=== PATIENT | male | born 1955 | race Caucasian/White ===

== ENCOUNTER → 2024-03-13 11:31 | Outpatient (REF) | payer MEDICARE, OTHER, SELFPAY ==
[2024-03-13 17:15] LABS: Blood Urea Nitrogen 27 mg/dl (9-20); Calcium 9.7 mg/dl (8.4-10.2); Carbon Dioxide 24 mmol/L (22-30); Chloride 105 mmol/L (98-107); Glucose 116 mg/dl (70-99); Potassium 4.4 mmol/L (3.5-5.1); Sodium 137 mmol/L (135-145); eGFR 46.64
[2024-03-13 17:31] LABS: Creatine Phosphokinase 3066 U/L (55-170)
== END ==
LOC: HWLAB 11:31
PROVIDERS: ATTENDING PHYSICIAN Family Medicine
DX: M79.10 Myalgia, unspecified site (principal)
CPT/HCPCS: 36415; 80048; 82550

== ENCOUNTER → 2024-03-20 11:40 | Outpatient (REF) | payer MEDICARE, OTHER, SELFPAY ==
[2024-03-20 15:33] LABS: Blood Urea Nitrogen 20 mg/dl (9-20); Calcium 9.4 mg/dl (8.4-10.2); Carbon Dioxide 26 mmol/L (22-30); Chloride 105 mmol/L (98-107); Creatine Phosphokinase 40 U/L (55-170); Glucose 95 mg/dl (70-99); Potassium 4.5 mmol/L (3.5-5.1); Sodium 135 mmol/L (135-145); eGFR > 60.00
== END ==
LOC: HWLAB 11:40
PROVIDERS: ATTENDING PHYSICIAN Family Medicine
DX: R74.8 Abnormal levels of other serum enzymes (principal)
CPT/HCPCS: 36415; 80048; 82550

== ENCOUNTER → 2024-06-26 06:45 | Outpatient (REF) | payer MEDICARE, OTHER, SELFPAY | LOC: MRI 3T 06:45 | PROVIDERS: ATTENDING PHYSICIAN Family Medicine | DX: F68.8 Other specified disorders of adult personality and behavior (principal); R26.81 Unsteadiness on feet; R40.4 Transient alteration of awareness; N52.9 Male erectile dysfunction, unspecified | CPT/HCPCS: 70551 ==

== ENCOUNTER → 2024-07-20 14:07 | Outpatient (REF) | payer MEDICARE, OTHER, SELFPAY | LOC: RAD 14:07 | PROVIDERS: ATTENDING PHYSICIAN Family Medicine | DX: R09.89 Other specified symptoms and signs involving the circulatory and respiratory systems (principal) | CPT/HCPCS: 93880 ==

== ENCOUNTER → 2024-08-10 07:32 | Outpatient (REF) | payer MEDICARE, OTHER, SELFPAY | LOC: RCS 07:32 | PROVIDERS: ATTENDING PHYSICIAN Internal Medicine Cardiovascular Disease; FAMILY PHYSICIAN Family Medicine | DX: I48.19 Other persistent atrial fibrillation (principal); I42.9 Cardiomyopathy, unspecified | CPT/HCPCS: 93306 ==

== ENCOUNTER → 2024-11-21 16:04 | Outpatient (REF) | payer MEDICARE, OTHER, SELFPAY | LOC: DHSLP 16:04 | PROVIDERS: ATTENDING PHYSICIAN Internal Medicine Cardiovascular Disease; FAMILY PHYSICIAN Family Medicine | DX: G47.33 Obstructive sleep apnea (adult) (pediatric) (principal) | CPT/HCPCS: 95800 ==

== ENCOUNTER → 2025-02-05 07:32 | Outpatient (REF) | payer MEDICARE, OTHER, SELFPAY ==
[2025-02-05 08:34] LABS: % Eosinophils 4.1 % (0-6); % Immature Granulocytes 0.3 % (0-0.5); % Lymphocytes 24.2 % (20.5-51.1); % Monocytes 6.9 % (1.7-9.3); % Neutrophils 63.5 % (42.2-75.2); Absolute Basophils 0.1 10^3/uL (0-0.2); Absolute Eosinophils 0.4 10^3/uL (0-0.7); Absolute Lymphocytes 2.3 10^3/uL (1.2-3.4); Absolute Monocytes 0.7 10^3/uL (0.1-0.6); Absolute Neutrophils 6.1 10^3/uL (1.4-6.5); Hematocrit 50.9 % (39.0-52.0); Hemoglobin 17.3 g/dL (13.0-18.0); Mean Corpuscular Hgb 30.2 pg (27.0-31.0); Mean Corpuscular Volume 88.8 fL (80.0-94.0); Mean Platelet Volume 10.2 fL (7.4-10.4); Nucleated Red Blood Cells % 0 % (-); Platelet Count 307 10^3/uL (130-400); Red Blood Cell Count 5.73 10^6/uL (4.70-6.10); Red Cell Dist. Width 13.1 % (11.5-14.5); White Blood Cell Count 9.6 10^3/uL (4.8-10.8)
[2025-02-05 08:39] LABS: INR 1.07; PT 14.3 Sec (11.4-14.6)
[2025-02-05 09:01] LABS: ALT (SGPT) 21 U/L (0-50); AST (SGOT) 21 U/L (17-59); Albumin 4.7 g/dl (3.5-5.0); Alkaline Phosphatase 95 U/L (38-126); Blood Urea Nitrogen 14 mg/dl (9-20); Calcium 9.7 mg/dl (8.4-10.2); Carbon Dioxide 26 mmol/L (22-30); Chloride 108 mmol/L (98-107); Glucose 116 mg/dl (70-99); Magnesium 2.2 mg/dl (1.6-2.3); Potassium 4.9 mmol/L (3.5-5.1); Sodium 143 mmol/L (135-145); Total Bilirubin 1.3 mg/dl (0.2-1.3); Total Protein 7.2 g/dl (6.3-8.2); eGFR > 60.00
== END ==
LOC: SDSPAT 07:32
PROVIDERS: ATTENDING PHYSICIAN Internal Medicine Cardiovascular Disease; FAMILY PHYSICIAN Family Medicine; REFERRING PHYSICIAN Internal Medicine Cardiovascular Disease
DX: I48.91 Unspecified atrial fibrillation (principal)
CPT/HCPCS: 36415; 75572; 80053; 83735; 85025; 85610; 86850; 86900; 86901; 93005; Q9967

== ENCOUNTER 2025-02-07 07:07 | Day surgery (SDC) | payer MEDICARE, OTHER, SELFPAY ==
[2025-02-05 08:04] VITALS: BMI 28.6
[2025-02-07] VITALS (13 sets, daily range): BP systolic 135–181; BP diastolic 83–115
--- NOTE | 2025-02-07 10:51 | ITS.CL.ABL ---
Convenience Store Manager - Ablation
Ablation
Procedure Report:
Primary Motor Vehicle Light Assembler: Dr Hubert Asher
Procedure Date: 02/07/2025
Patient History:
Patient pleasant 69-year-old male with a past medical history significant for hypertension, hyperlipidemia, nonischemic cardiomyopathy, symptomatic persistent atrial fibrillation.
See H&P for complete details.
Indication:
Symptomatic persistent atrial fibrillation
Nonischemic cardiomyopathy
Heart failure with mildly reduced ejection fraction
Arrhythmia Specific History:
Prior Medical Therapies for Rate and Rhythm Control:
X Beta-cleo
[ ] Calcium channel-cleo
[ ] Amiodarone
[ ] Dronederone
[ ] Sotalol
[ ] Flecainide
[ ] Dofetilide
[ ] Options limited by bradycardia
[ ] Options limited by comorbid renal disease
Prior Procedural Therapies for AF/AFL:
X Cardioversion
[ ] Pulmonary Vein Isolation
[ ] Posterior Wall Isolation
[ ] Additional lines (Specify)
[ ] Surgical Castro-MAZE or PVI (Specify)
Procedure Performed:
X AF ablation procedure (08677) -- includes LA/CS pacing, trans-septal, 3D mapping, + ICE
[ ] +IV drug (48766)
[ ] +Other Arrhythmia (55085)
X +Other AF Line/ablation (19679 x2) -- Posterior wall, floor line, roof line
Risks and expected recovery has been explained in detail. Alternative options have been explored, and in a shared-decision making fashion we have decided that this was the most appropriate procedure.
Method
NPO status confirmed. Grounding pad applied. Defibrillator pads applied. Continuous surface ECG, pulse oximetry, and blood pressure were monitored. Procedure was performed under general anesthesia, with anesthesia services.
Both groins were clipped, prepped with Chloraprep, and draped in sterile fashion. Time out was called. Local anesthesia administered with bupivacaine. The right femoral vein was accessed for catheter placement, using ultrasound guidance (images
saved to record), micro-puncture needle/wire, and modified seldinger technique. 3 sheaths were placed. The following catheters were used:
[ ] Tacticath SE (D/F Curve) ablation catheter
X Viewflex 9Fr ICE catheter
X Inquiry decapolar 6Fr diagnostic catheter
[ ] CRD Hex 6Fr
X FlexCath Contour 10 Fr with PulseSelect PFA Catheter
X Advisor HD Grid Mapping Catheter, SE
[ ] Acuson AcuNav 8 Fr ICE catheter
[ ]Other: [ ]
Intracardiac ultrasound (ICE) was carefully advanced into the right atrium to guide sheath placement over a J-wire, catheter placement, guide trans-septal puncture, identify potential complications, identify anatomic structures and ensure proper
contact between ablation catheter and tissue. A trace pericardial effusion was noted to be posterior/basal LV at the initiation of case. This remained unchanged during and at case completion.
Heparin was given prior to trans-septal puncture. Heparin was given to achieve and maintain a target ACT of 300-400 seconds throughout the procedure.
Trans-septal access was performed under ICE guidance. The trans-septal puncture was performed with a SafeSept wire through a Brockenbrough needle assembly through the steerable sheath. The wire was visualized as it entered the LSPV and system
advanced under ICE guidance and fluoroscopy into the LA. The Brockenbrough needle assembly, SafeSept wire and sheath dilator were removed under negative pressure. LA pressure was measured and recorded.
ICE and 3D mapping was performed to identify relevant cardiac structures. A careful 3D map was created to assess for regions of low-voltage and abnormal electrogram signals using HD grid mapping catheter and PulseSelect catheter. Additional mapping
was performed as outlined below.
Prior to ablation, glycopyrrolate was provided. PulseSelect catheter was advanced over J-wire to the ostium of each vein. Pulmonary vein isolation was performed with ostial and antral lesions in a circumferential manner. Contact was visualized via
EAM, ICE, fluoroscopy, and EGM signals.
After accomplishing pulmonary venous isolation, mapping identified additional areas likely to be extra PV contributors to atrial fibrillation. These areas demonstrated patchy low voltage as well as complex fractionated electrograms. These areas can
be sites for the formation of rotors which can drive and maintain atrial fibrillation. These areas are known to be significant contributors to initiation and perpetuation of atrial fibrillation.
Additional energy applications/additional ablation sets targeted extra PV contributors to atrial fibrillation.
Targets for additional PFA ablation included: LA posterior wall targeted with pulsed electric field energy isolating the posterior wall of the left atrium. Posterior wall isolation was performed by anchoring the J-wire within the pulmonary vein and
placing the PulseSelect catheter in contact posterior wall as visualized by aforementioned methods.
After ablation of the posterior wall, targets remained including:
- Inferior LA floor
- Anterior LA roof
These areas were ablated using pulsed electric field energy eliminating the extra PV contributors to atrial fibrillation.
Following completion of ablation lesions, sinus rhythm was restored with a 200J synchronized DCCV and a post-ablation voltage/activation map was performed in sinus rhythm. Reconnection was noted by high-density mapping with HD grid mapping catheter
at the left superior and right superior pulmonary veins. Pulse select catheter was reintroduced in the left atrium and ablation was performed at the left superior and right superior pulmonary veins. During ablation of the left superior pulmonary
vein, spontaneous AF was noted with return to sinus rhythm with cardioversion entheses 200 J synchronized DCCV). HD mapping catheter was reintroduced in the left atrium and entrance and exit block were confirmed for each vein and the posterior wall.
Catheter and sheath were removed from the left atrium and post-ablation intracardiac echo evaluation was consistent with pre-ablation with no changes and no pericardial effusion and there is no left atrial thrombus or left ventricle thrombus seen.
Electrophysiology study was performed. Hemostasis was obtained with Vascade for each sheath and with manual pressure. Protamine was used for reversal.
Estimated Blood Loss
5 mL
Complications
None
Fluoroscopy: 2.6 minutes; 7.95 mGy; DAP 0.99
LA Pressure: Pre 18 mmHg, post 11 mmHg
Baseline Intervals:
Rhythm: AF
QRS: 79 ms
QT: 256 ms
Post-Procedure Intervals:
SD: 194 ms
QRS: 66 ms
QT: 415 ms
QTc: 442 ms
A-A: 883 ms
R-R: 883 ms
AVWB: 340 ms
AVNERP: 600/290 ms
AERP: 600/220 ms
Recommendations
- Bedrest with straight-leg precautions as ordered
- Anticipate same day discharge if patient meeting clinical metrics
- Resume home medications as indicated
- Ok to resume anticoagulation tonight if patient and groin sites stable
- PPI daily for 30 days
- Plan for follow-up in office as scheduled
Maycol Infante, , FACC, FHRS
Clinical Cardiac Card Boxer
cc: Dr Cris Asher; Dr Arndt
[2025-02-07 12:21] LABS: ACT-LR - POC 268 Seconds (116-155)
[2025-02-07 12:36] LABS: ACT-LR - POC 384 Seconds (116-155)
[2025-02-07 12:52] LABS: ACT-LR - POC 290 Seconds (116-155)
[2025-02-07 13:10] LABS: ACT-LR - POC 393 Seconds (116-155)
[2025-02-07 13:26] LABS: ACT-LR - POC 326 Seconds (116-155)
[2025-02-07 13:42] LABS: ACT-LR - POC 337 Seconds (116-155)
[2025-02-07 13:57] LABS: ACT-LR - POC 145 Seconds (116-155)
--- NOTE | 2025-02-07 16:43 | W.PN.UPDATE ---
Update Note
Progress Note Update
69 yo WM s/p PVI (same day). He denies cp, sob, laura diet, R fem site vascade c/d/i no HT, soft. He will resume Eliquis tonight after 8pm. He will continue metoprolol and add PPI for 30d. Activity restrictions reviewed. He will f/u Dr. Harden in 3
mo. He is for d/c home after 5pm if groin stable.
== END 2025-02-07 17:15 | disposition home or self-care (01) ==
LOC: CATH 07:07
PROVIDERS: ATTENDING PHYSICIAN Internal Medicine Cardiovascular Disease; FAMILY PHYSICIAN Family Medicine; OTHER PHYSICIAN Internal Medicine Cardiovascular Disease
DX: I48.19 Other persistent atrial fibrillation (principal); I42.8 Other cardiomyopathies; E78.5 Hyperlipidemia, unspecified; I11.0 Hypertensive heart disease with heart failure; G47.33 Obstructive sleep apnea (adult) (pediatric); I08.1 Rheumatic disorders of both mitral and tricuspid valves; Z85.47 Personal history of malignant neoplasm of testis; Z87.891 Personal history of nicotine dependence; Z86.19 Personal history of other infectious and parasitic diseases; Z79.899 Other long term (current) drug therapy; Z92.21 Personal history of antineoplastic chemotherapy; I50.32 Chronic diastolic (congestive) heart failure
CPT/HCPCS: 93312; 93320; 93325; C1732; C1894; C1730; C1769; C1733; C1766; 85347; 86900; 86901; 93005; 93656; 93657; C1760

== ENCOUNTER 2025-02-09 06:47 | Inpatient (IN) | payer MEDICARE, OTHER, SELFPAY ==
[2025-02-09] VITALS (67 sets, daily range): BP systolic 100–241; BP diastolic 48–135; PULSE 2–96; BMI 28.5; BMI 28.3
[2025-02-09 02:32] LABS: Hematocrit 47.7 % (39.0-52.0); Hemoglobin 16.1 g/dL (13.0-18.0); Mean Corp Hgb Conc. 33.8 g/dL (33.0-37.0); Mean Corpuscular Volume 90.3 fL (80.0-94.0); Nucleated Red Blood Cells % 0 % (-); Platelet Count 309 10^3/uL (130-400); Red Cell Dist. Width 13.6 % (11.5-14.5)
[2025-02-09 02:35] LABS: INR 1.08; PT 14.5 Sec (11.4-14.6)
[2025-02-09 02:36] LABS: APTT 27.0 Sec (23.4-35.0)
[2025-02-09] MEDS: NITRO-BID 1 INCH TOPICAL (02:38)
[2025-02-09 02:39] LABS: ALT (SGPT) 26 U/L (0-50); AST (SGOT) 54 U/L (17-59); Albumin 4.7 g/dl (3.5-5.0); Alkaline Phosphatase 96 U/L (38-126); Blood Urea Nitrogen 21 mg/dl (9-20); Calcium 9.5 mg/dl (8.4-10.2); Carbon Dioxide 24 mmol/L (22-30); Chloride 111 mmol/L (98-107); Estimated Creatinine Clearance 67 ml/min; Glucose 123 mg/dl (70-99); Potassium 4.5 mmol/L (3.5-5.1); Sodium 143 mmol/L (135-145); Total Protein 7.1 g/dl (6.3-8.2); eGFR > 60.00
[2025-02-09 03:21] LABS: Troponin I 6.140 ng/ml
--- NOTE | 2025-02-09 04:30 | ED.GENMED ---
History of Present Illness
General
Chief Complaint: Breathing Problem
Source: patient
Time Seen by Provider: 02/09/25 02:16
Nursing documentation reviewed up to this point in time: agreed with
History of Present Illness
History of Present Illness:
Note:
CHIEF COMPLAINT(S)
Shortness of breath
HISTORY OF PRESENT ILLNESS
The patient is a 69-year-old male who experienced sudden onset shortness of breath approximately half an hour prior to arrival. The symptoms began post-ablation, which the patient underwent yesterday around 2 oclock. The patients spouse noted the
difficulty in breathing while they were lying in bed together around midnight. The patient denied any chest pain but reported that the shortness of breath was new and abrupt. The patient confirmed not experiencing these symptoms immediately after
the procedure during the day.
PHYSICAL EXAM
Nursing notes reviewed and vital signs reviewed.
The physical exam included listening for lung sounds, which showed no immediate issues, confirming good lung markings.
PLAN
A chest X-ray was planned to further evaluate the cause of the shortness of breath. It was discussed that if necessary, intubation might be needed, and the patient consented to the procedure if required.
DIFFERENTIAL DIAGNOSIS
The Differential Diagnosis includes, in no particular order and is not limited to:
1. Post-procedural pulmonary edema
2. Pulmonary embolism
3. Acute coronary syndrome
4. Allergic reaction to medication or anesthesia
5. Pneumothorax
6. Cardiac tamponade
7. Heart failure exacerbation
8. Atelectasis
9. Infection, such as pneumonia
10. Anesthesia-related complications
Disposition:
SUMMARY OF ENCOUNTER
The 69-year-old male patient presented to the emergency department with sudden onset of shortness of breath, experienced approximately half an hour prior to arrival. This occurred following an ablation procedure the day before. Upon evaluation, the
patient denied chest pain and lung sounds were normal. However, the possibility of post-procedural pulmonary edema was considered.
DISPOSITION
Admit
ASSESSMENT
The patient likely experienced flash pulmonary edema following the procedure, necessitating hospitalization for further evaluation and monitoring.
MANAGEMENT OF THE PATIENTS CARE WAS DISCUSSED WITH
Spoke with Dr. Reeves from cardiology who recommended hospital admission for monitoring troponin levels and further cardiac assessment.
PLAN
Admit the patient for continued testing, observation, and trending of troponin levels due to suspected post-procedural complications.
INDEPENDENT REVIEW OF LABS AND INTERPRETATION OF TESTS
Labs were reviewed with cardiology, appearing to be expected or improved.
MEDICAL DECISION MAKING
-Complexity of Data Reviewed: Chronic conditions affecting care, including potential post-procedural complications such as flash pulmonary edema [possible differential diagnosis: post-procedural pulmonary edema, pulmonary embolism, acute coronary
syndrome, allergic reaction, pneumothorax, cardiac tamponade, heart failure exacerbation, atelectasis, infection like pneumonia, anesthesia-related complications].
-Data:
Category 1: Labs were ordered to monitor cardiac markers, including troponin.
Category 3: Discussion of management was conducted with Dr. Reeves from cardiology to determine the necessity of admission and ongoing assessment.
DIAGNOSIS
- Flash Pulmonary Edema post-procedure (ICD-10: J81.0)
Past History
Past History
ED Past Medical History: Other (testicular cancer )
ED Past Surgical History: Other (retroperitoneal lymph )
Social History
Tobacco: Non-smoker
Personal:
Phy Exam
General Physical Exam
General Presentation: moderate distress
General age: appears older than age
General Skin: diaphoretic
General Habitus: normal
General Mental: alert
General Hydration: appears well hydrated
ENT Exam
ENT Exam: EOMI, pharynx normal, neck supple and normocephalic
Eye Exam
Eye Exam: PERRL, cornea clear and conjunctiva normal
Cardiovascular Exam
Cardiovascular Exam: tachycardia
Pulmonary Exam
Pulmonary Exam: accessory muscle use, generalized wheezing and respiratory distress
Respiratory Effort: poor respiratory effort
Oxygen Status: BiPAP
Cough: coarse cough
Respirations: accessory muscle use and moderate effort
Breath Sounds: Wheeze: generalized
Gastrointestinal Exam
Gastrointestinal Exam: normal bowel sounds, non tender, soft, no organomegaly, no pulsatile mass and non distended
Neurological Exam
Neurological Exam: alert, oriented x3, no motor deficits and speech normal
Musculoskeletal Exam
Musculoskeletal Exam: full ROM and no edema
Skin Exam
Skin Exam: normal color and diaphoresis
Psychiatric Exam
Psychiatric Exam: normal mood/affect
Scores
Heart Failure Risk
Heart Failure Risk Score: Yes
History of Stroke or TIA: No
History of intubation for respiratory distress: No
Heart rate on ED arrival >/= 110: Yes
SaO2 <90% on arrival on room air: Yes
HR >/=110 during 3min walk test (or too ill to perform test): Yes
ECG has acute ischemic changes: No
Urea >/=12mmol/L (BUN 33.6mg/dL): No
Serum CO2>/=35mmol/L: No
Troponin I or T elevated to ID Level (0.4mg/dL): Yes
NT-proBNP >/=5,000ng/L (5,000pg/ml): No
HF Risk Score: 5
Admission Status: VERY HIGH RISK 39.8% Consider admission to hospital
Course
Orders/Labs/Results
Orders:
Orders
02/09/25 02:10
CR Chest Portable - 1 View Stat
Comment:
Reason For Exam: SOB
Reason Study Needs to be Portable: Unable to Transport
02/09/25 02:11
Electrocardiogram (*1) Urgent
Reason for Study: Shortness of Breath
EKG- Treatment ONCE
02/09/25 02:15
Add On- LAB Urgent
Tests Added?: pro-bnp
CT Chest PE Study Urgent
Comment:
Reason For Exam: Sudden onset SOB shortly after ablation
Complete Blood Count/With Diff Urgent
Comprehensive Metabolic Panel Urgent
NT-proBNP Urgent
Comment: ADD ON
PTT Urgent
Prothrombin Time Urgent
Troponin I Urgent
02/09/25 02:36
Nitroglycerin Ointment [Nitro-Bid] 1 inch TOPICAL NOW STA
Abnormal Lab Results
02/09/25
02:15
WBC 21.4 H 10^3/uL
(4.8-10.8)
Abs Immat Gran (auto) 0.1 H 10^3/uL
(0-0.05)
Absolute Neuts (auto) 17.4 H 10^3/uL
(1.4-6.5)
Absolute Monos (auto) 1.0 H 10^3/uL
(0.1-0.6)
Immature Gran % 0.6 H %
(0-0.5)
Neutrophils % 81.5 H %
(42.2-75.2)
Lymphocytes % 11.8 L %
(20.5-51.1)
Chloride 111 H mmol/L
(98-107)
BUN 21 H mg/dl
(9-20)
Glucose 123 H mg/dl
(70-99)
Troponin I 6.140 H* ng/ml
02/09/25 02:15
02/09/25 02:15
Vital Signs
Initial and Last Documented VS:
Initial Vital Signs
Resp
47
02/09/25 02:08
Last Documented Vital Signs
Pulse Resp BP Pulse Ox
89 30 139/93 96
02/09/25 04:00 02/09/25 04:00 02/09/25 04:00 02/09/25 04:30
*Radiology
Radiology exam reviewed: radiology read reviewed
*Pulse Oximetry
SaO2: 96
Oxygen Mode of Delivery: BiPAP
Patient hypoxic: yes (Upon arrival patient was hypoxic)
*Plating Department Helper Interpretation
Rate: tachycardiac
Heart Rate: 103
Rhythm: sinus
*Critical Care Note
Total Time (30-74mins, 75-104mins- exclusive of procedures): 50 (Critical care statement: A total of 50 minutes of critical care time was provided for this patient. This time is separate from time utilized to perform the aforementioned documented
procedures. Aggregate critical care time includes only time during which I was engaged in work directl)
Update Note
Update Note:
NAME: ERIK BOO
DATE OF EXAM: 02/09/2025
Patient No: [id number]
Physician: MARCUS^Jeison
Date of : 1955
Past Medical History (entered by Technologist):
Reason For Exam (entered by Technologist): sob s/p ablation yesterday
Other Notes (entered by Technologist):
Additional Information (per [facility] Radiologist):
CT ANGIOGRAM CHEST WITH CONTRAST
COMPARISON: 02/05/2025
IMPRESSION:
Technically adequate examination for pulmonary embolus. No evidence of pulmonary embolus to the segmental level.
Heart size is normal. Thoracic aorta is normal in caliber.
Moderate pulmonary edema asymmetrically involving the right upper, middle, lower lobes. Small right pleural effusion. Mild thickening of the right inferior pulmonary vein. No definite intracardiac thrombus. No specific features of
atrioesophageal fistula.
Left thyroid nodule measuring 3.5 cm.
Visualized upper abdomen is unremarkable.
No concerning bone finding. Unchanged moderate T12 compression deformity.
Case results were faxed/electronically transmitted at 2904 EST. If there are any questions please feel free to contact me directly at [phone], ext [phone]. If you cannot reach me at this number, do not leave a voicemail. Please call [phone]
ext [phone] and ask for the next available radiologist.
ED Attending Note
-
Portions of this chart may have been created with voice recognition software.� Occasional wrong word or��sound alike� substitutions may have occurred due to the inherent limitations of voice recognition software.
Discharge Plan
Departure
Patient Disposition: Admit
Date of Disposition: 02/09/25
Time of Disposition: 05:01
Presentation/result/management discussed w/ accepting MD/DO: Hospitalist
Patient with high blood pressure during this ER visit?: Yes
Condition: Fair
Discharge Problem:
Flash pulmonary edema, Acute respiratory distress
Prescriptions:
No Action
Eliquis 5 mg Tablet
5 mg PO BID
atorvastatin 10 mg Tablet
10 mg PO QPM
metoprolol tartrate 50 mg Tablet
50 mg PO BID
pantoprazole [Protonix] 40 mg tablet,delayed release (DR/EC)
40 mg PO DAILY Qty: 30 0RF
Referrals:
Asa Arndt MD [Family Provider, Family Practice]
Interventions
Interventions:
*Risk Screen - Suicide Last Done: 02/09/25 02:21
*General Assessment Last Done: 02/09/25 02:12
*Neglect/Abuse Screening Last Done: 02/09/25 02:21
*ED- Fall Risk Assessment Last Done: 02/09/25 02:12
*ED COVID-19 Vaccine History Last Done: 02/09/25 02:12
ED- Cardiac Assessment Last Done: 02/09/25 02:21
ED- Pulmonary Assessment Last Done: 02/09/25 02:21
Discharge Date and Time
Print Language: IRISH
--- NOTE | 2025-02-09 06:36 | HPS.HSE ---
Family Physician
-
Family Physician: Asa Arndt MD
Chief Complaint
-
SOB
History of Present Illness
Patient is a 69y M with PMH significant for hypertension, cardiomyopathy with recovered EF and A-Fib s/p recent PVI ablation who presents to ED in respiratory distress. Patient underwent PVI ablation on 02/07/25. He was feeling well following
that procedure. This evening when going to bed (around midnight), he started to feel SOB. A short time later, his noted that he was breathing very shallow / strangely. He informed her that he was having difficulty breathing and EMS as called.
Patient denies any chest pain, palpitations, diaphoresis, nausea, etc.
He denies any recent cough, fevers / chills, etc.
Patient was placed on BiPAP in the ED along with Nitropaste and is currently resting comfortably. He feels much improved from initial arrival.
Medical History
Past Medical History
Past Medical History: Reports Other
Additional Past Medical History:
Persistent Atrial Fibrillation
Hypertension
Cardiomyopathy with Recovered EF
MEDARDO (not on PAP therapy)
Testicular Cancer s/p Surgery / Chemo
Past Surgical History: Reports Other
Additional Past Surgical History:
PVI Ablation 02/07/25
Orchiectomy
Social History
Tobacco: Former Smoker (Quit smoking 50 years ago.)
Alcohol: Daily (1 drink daily.)
Family History
Family History: Not pertinent
Allergies / Home Medications
Allergies reflects when Allergies were last updated in [facility].
Home Medications with original date entered in [facility]
Allergy/Medication List:
Allergies
Allergy/AdvReac Type Severity Reaction Status Date / Time
blood transfusions Allergy Severe Anaphylaxis Uncoded 02/09/25 02:12
Home Medications
apixaban 5 mg tablet (Eliquis) 5 mg PO BID 02/05/23
atorvastatin 10 mg tablet 10 mg PO QPM 02/02/25
metoprolol tartrate 50 mg tablet 50 mg PO BID 02/07/25
pantoprazole 40 mg tablet,delayed release (Protonix) 40 mg PO DAILY #30 tabs 02/07/25
Review of Systems
-
History Source: Patient
A 12 point ROS was completed and negative except as noted: Yes
Constitutional: Reports Fatigue; Denies Fever or Chills
EENT: Denies Sore Throat
Respiratory: Reports Trouble Breathing; Denies Cough
Cardiac: Denies Chest Pain, Diaphoresis or Palpitations
Abdomen/GI: Denies Abdominal Pain, Nausea, Vomiting or Diarrhea
: Denies Dysuria or Frequency
Musculoskeletal: Denies Joint Pain or Edema
Neurological: Denies Dizzy or Headache
Psych: Denies Depression or Anxiety
Physical Exam
Vital Signs
Vital Signs
Pulse Resp BP Pulse Ox
84 23 124/81 97
02/09/25 06:00 02/09/25 06:00 02/09/25 06:00 02/09/25 06:00
Physical Exam
General: Other (69y M comfortable with BiPAP in place.)
HEENT: Moist mucous membranes, PERRLA and Other (Pos JVD.)
Respiratory: Other (Bibasilar rales.)
Cardiac: S1/S2 and Regular Rhythm; No Murmur
GI: Soft, Non Tender, Non Distended and Normal Bowel Sounds
Musculoskeletal: No Clubbing, No Cyanosis and No Edema
Neuro: AO x 3
Hematologic/Lymphatic: Other (R groin puncture site with dressing in place. No bleeding or surrounding ecchymosis, etc.)
Laboratory Results
-
02/09/25 02:15
02/09/25 02:15
Laboratory Results
PT 14.5 Sec (11.4-14.6) 02/09/25 02:15
INR 1.08 02/09/25 02:15
APTT 27.0 Sec (23.4-35.0) 02/09/25 02:15
Total Bilirubin 0.7 mg/dl (0.2-1.3) 02/09/25 02:15
AST 54 U/L (17-59) 02/09/25 02:15
ALT 26 U/L (0-50) 02/09/25 02:15
Alkaline Phosphatase 96 U/L (38-126) 02/09/25 02:15
Troponin I 6.140 ng/ml H* 02/09/25 02:15
Impression/Plan
-
A/P: Patient is a 69y M with PMH significant for hypertension, cardiomyopathy and A-Fib s/p recent ablation who presents to ED complaining of SOB.
Flash Pulmonary Edema
Acute Hypoxemic Respiratory Failure secondary to the above
- Admit for further evaluation and treatment.
- Patient presented in respiratory distress with markedly elevated BP, bilateral rales, pulm edema on imaging, etc.
- BP / dyspnea markedly improved with administration of NitroPaste.
- Continue NTP q 6 for now with holding parameters.
- Continue BiPAP and wean as able (much more comfortable at present).
- IV Lasix dose this AM.
- Adjust antihypertensive med regimen as needed for normotension.
- Cardiology evaluation for additional recommendations.
Persistent Atrial Fibrillation
- s/p PVI ablation on 02/07/25.
- Continue Eliquis for stroke risk reduction.
- Monitor on tele.
- Continue metoprolol.
- Femoral puncture site care.
DVT Prophylaxis: On Eliquis
Code Status: Full
--- NOTE | 2025-02-09 07:16 | CON.CAR ---
Consultation
Consultation Request
Date/Time Consultation Requested: 02/09/2025, 0230
Date/Time Consultation Performed: 02/09/2025, 0700
Requesting Provider: Dr Salguero
Performing Provider: Dr Infante
Reason for Consultation: SOB
Medical History
-
Chief Complaint: SOB
History of Present Illness:
Patient is a very pleasant 69-year-old male with a past medical history significant for hypertension, hyperlipidemia, nonischemic cardiomyopathy with recovered EF, symptomatic persistent atrial fibrillation with recent ablation on 02/07/2025 with PFA
PVI/PWI. In discussion with patient, reports overall feeling well following discharge however on 02/08/2025, he began to experience increasing/worsening shortness of breath at rest and with activity and exertion which was new for him. Patient was
increasing his use of BiPAP at home to the point where he needed to come into the hospital due to worsening shortness of breath. Patient denies any chest pain, lightheadedness, dizziness, near-syncope, syncope, PND, with apnea, palpitations, or
weakness. Patient reports stable groin sites without complaints. Patient reports adherence to Eliquis however has not taken his dose today. No other complaints at this time.
Past Medical History
Past Medical History: Other (See HPI)
Past Surgical History: Other (Orchiectomy, AF ablation)
Social History
Tobacco: Former Smoker
Alcohol: Daily
Drug: None
Personal:
Living: With Family
Family History
Family History: Reviewed & Not Pertinent
Allergies / Home Medications
Allergy/AdvReac Type Severity Reaction Status Date / Time
blood transfusions Allergy Severe Anaphylaxis Uncoded 02/09/25 02:12
�Medication �Instructions �Recorded �Confirmed �Type
apixaban 5 mg tablet (Eliquis) 5 mg PO BID 02/05/23 02/09/25 History
atorvastatin 10 mg tablet 10 mg PO QPM 02/02/25 02/09/25 History
metoprolol tartrate 50 mg tablet 50 mg PO BID 02/07/25 02/09/25 History
pantoprazole 40 mg tablet,delayed 40 mg PO DAILY #30 tabs 02/07/25 02/09/25 Rx
release (Protonix)
Review of Systems
-
History Source: Patient
All other systems: Negative unless noted
Constitutional: No Symptoms
EENT: No Symptoms
Respiratory: Trouble Breathing
Cardiac: No Symptoms
Abdomen/GI: No Symptoms
: No Symptoms
Musculoskeletal: No Symptoms
Skin: No Symptoms
Neurological: No Symptoms
Endocrine: No Symptoms
Hematologic/Lymphatic: No Symptoms
Physical Exam
Vital Signs
Pulse Resp BP Pulse Ox
84 23 124/81 97
02/09/25 06:00 02/09/25 06:00 02/09/25 06:00 02/09/25 06:00
Lab Results
02/09/25 02:15
02/09/25 02:15
Troponin I 6.140 ng/ml H* 02/09/25 02:15
Ihm-B-Tjjqzdzwtvu Pept 643 pg/ml 02/09/25 02:15
Physical exam:
GENERAL: no acute distress
EYE: sclera anicteric
NECK: Supple, no JVD, no carotid bruit appreciated
ENT: normal nose, moist mucosal membranes
CARDIAC: Regular rate and rhythm, +S1/S2, no murmur, rubs, or gallops
CHEST/PULMONARY: Normal effort, bibasilar crackles, on BiPAP
ABDOMEN: Soft, without focal tenderness or distention
NEUROLOGICAL: Alert and oriented x3
SKIN: Warm and dry, no rash
PSYCH: Normal and appropriate interaction.
Impression / Plan
-
Family Physician: Asa Arndt MD
[employer]: Hubert Asher MD
Impression:
Acute hypoxic respiratory failure
� Likely multifactorial in the setting of flash pulmonary edema and elevated white count
� Leukocytosis may be reactive however cannot exclude infection
� Admission BNP greater than 600, systolics greater than 200, EKG sinus rhythm
� Chest imaging no evidence of PE however evidence of volume overload by imaging
� Requiring BiPAP, nitroglycerin paste
� IV Lasix given on 02/2025
Flash pulmonary edema contributing to above
Hypertension, poorly controlled
Nonischemic cardiomyopathy, recovered EF
� On beta-cleo
� Not previously on ARB or other medical therapy due to hypotension
Symptomatic persistent atrial fibrillation, currently in sinus rhythm
� Status post AF ablation (PFA PVI/PWI on 02/07/2025)
� [id number]: 3 (heart failure, hypertension, age). Eliquis 5 mg twice daily for stroke risk reduction
Echo, 01/28/2023:Mildly reduced LV function with EF 45-50%, mild MR
Echo, 08/10/2024: Normal LV RV function, EF 55-60%, mild MR, mild TR PASP 27 mmHg
DEO, 02/07/2025: Normal LV RV function EF 55 to 60%, trace MR, mild TR, focal pulmonic valve thickening, no left atrial appendage thrombus
Recommendations:
� IV Lasix, monitor intake and output, daily weights
� Monitor on telemetry, continue oral anticoagulation with recent PVI
� Continue metoprolol, may require additional agents like ARB/MELVIN in setting of prior nonischemic cardiomyopathy and hypertension
� Wean BiPAP as tolerated
� Appreciate input by primary service further etiologies for shortness of breath and leukocytosis
� Further recommendations to follow
Data Reviewed
-
EKG: Tracing Personally Visualized and interpreted
Radiology: Report Reviewed by me
CT Scan: Report Reviewed by me
Labs: Labs Reviewed by me
Old Records: Reviewed
[2025-02-09] MEDS: LOPRESSOR 50 MG PO ×2 (10:26→20:17)
[2025-02-09] MEDS: ELIQUIS 5 MG PO ×2 (10:27→20:17)
[2025-02-09] MEDS: LASIX 40 MG IV (10:27)
--- NOTE | 2025-02-09 11:00 | PTCARENOTE ---
Pt rec'd from ED RN at approx 10:00 am on 5L nasal cannula, sa02 97%, AOx3 flat affect, stood and pivoted to bed. Pt verbalized no pain at this time. Orders rec'd and reviewed, admission and assessment completed, plan discussed with Dr. Diehl and
patient updated. Pt verbalized understanding, call fang in reach. Utilizing urinal PRN -voiding clear yellow urine. Diet ordered, 02 weaned to 4L.
[2025-02-09] MEDS: PROTONIX 40 MG PO (11:06)
--- NOTE | 2025-02-09 12:01 | W.PN.UPDATE ---
Update Note
Progress Note Update
Seen and examined independent of overnight physician
Patient was evaluated in the ER on BiPAP. States breathing improved. BiPAP
Eventually patient transferred to IMU and off BiPAP on nasal cannula. Seems to be tolerating well.
General: Other (69y M comfortable with BiPAP in place.)
HEENT: Moist mucous membranes, PERRLA and Other (Pos JVD.)
Respiratory: Other (Bibasilar rales.)
Cardiac: S1/S2 and Regular Rhythm; No Murmur
GI: Soft, Non Tender, Non Distended and Normal Bowel Sounds
Musculoskeletal: No Clubbing, No Cyanosis and No Edema
Neuro: AO x 3
A/P: Patient is a 69y M with PMH significant for hypertension, cardiomyopathy and A-Fib s/p recent ablation who presents to ED complaining of SOB.
Flash Pulmonary Edema
Acute Hypoxemic Respiratory Failure secondary to the above
- Patient presented in respiratory distress with markedly elevated BP, bilateral rales, pulm edema on imaging, etc.
- BP / dyspnea markedly improved with administration of NitroPaste.
- Continue NTP q 6 for now with holding parameters.
- Currently on oxygenation with nasal cannula. Can restart BiPAP if needed.
- IV Lasix dose this AM.
- Adjust antihypertensive med regimen as needed for normotension.
-CT chest negative for pulmonary embolism. There is a finding of moderate pulmonary edema. Blood pressure improving.
- Cardiology evaluation for additional recommendations.
Persistent Atrial Fibrillation
- s/p PVI ablation on 02/07/25.
- Continue Eliquis for stroke risk reduction.
- Monitor on tele.
- Continue metoprolol.
- Femoral puncture site care.
Elevated troponin likely secondary to recent ablation, flash pulmonary edema, hypoxic respiratory failure
- Currently without chest pain. Monitor troponin. Cardiology following.
Leukocytosis unclear etiology
-If spikes fever check UA blood culture
-Continue to trend for now
Thyroid nodule
-Outpatient follow-up
DVT Prophylaxis: On Eliquis
Code Status: Full
[2025-02-09] MEDS: NITRO-BID 0.5 INCH TOPICAL ×2 (12:26→18:18)
[2025-02-09 13:58] LABS: Troponin I 3.880 ng/ml
[2025-02-09] MEDS: TRANDATE 10 MG IV (15:11)
--- NOTE | 2025-02-09 15:30 | PTCARENOTE ---
BPs continue trending high, updated. Stat dose 10 mg Labetalol ordered and given. Pts informed this RN that pt's groin dressing was due to be removed today as per his dc instuctions from previous ablation. Dressing removed. Scant old
drainage noted, area wiped with CHG cloths and left PRODUCT LEAD. Pt resting quietly in bed, watching TV, at bedside.
[2025-02-09] MEDS: LIPITOR 10 MG PO (18:18)
--- NOTE | 2025-02-09 18:38 | PTCARENOTE ---
Pt was assisted oob to chair for dinner, sat out for approx 2 hours, standby assistance, gait steady, slightly impulsive. Pt now back in bed, resting watching tv. BP improved s/p medication administration as prior, currently 134/79. left for
night, call fang in reach.
[2025-02-10] VITALS (25 sets, daily range): BP systolic 97–178; BP diastolic 66–112; PULSE 86; O2SAT 93; BMI 27.5
[2025-02-10] MEDS: NITRO-BID 0.5 INCH TOPICAL ×2 (00:50→05:54)
[2025-02-10 04:17] LABS: Hematocrit 40.3 % (39.0-52.0); Hemoglobin 13.8 g/dL (13.0-18.0); Mean Corp Hgb Conc. 34.2 g/dL (33.0-37.0); Mean Corpuscular Volume 89.2 fL (80.0-94.0); Platelet Count 218 10^3/uL (130-400); Red Cell Dist. Width 13.6 % (11.5-14.5)
[2025-02-10 04:26] LABS: Blood Urea Nitrogen 19 mg/dl (9-20); Calcium 9.0 mg/dl (8.4-10.2); Carbon Dioxide 27 mmol/L (22-30); Chloride 108 mmol/L (98-107); Estimated Creatinine Clearance 84 ml/min; Glucose 112 mg/dl (70-99); Potassium 4.0 mmol/L (3.5-5.1); Sodium 138 mmol/L (135-145); eGFR > 60.00
[2025-02-10 04:40] LABS: Troponin I 2.240 ng/ml
[2025-02-10] MEDS: PROTONIX 40 MG PO (08:27)
[2025-02-10] MEDS: ELIQUIS 5 MG PO ×2 (08:27→19:24)
[2025-02-10] MEDS: LOPRESSOR 50 MG PO ×2 (08:27→19:23)
[2025-02-10] MEDS: LASIX 40 MG IV (08:27)
[2025-02-10] MEDS: FLUSH (NSS) 1 FLUSH IV (08:28)
--- NOTE | 2025-02-10 08:50 | PTCARENOTE ---
Rec'd pt at 0800 awake alert and oriented resting in bed. Will answer questions when asked but overall affect is very flat. Speech is clear. CASTANEDA. Denies pain. Skin is pink wm and dry. R groin ablation puncture site with sl ecchymosis but no
swelling or drainage. Respirs- states his breathing feels much better today. Denies feeling short of breath but does get mildly winded with exertion. O2 on at 2l nc with sats of 93-94%. BS are clear with few fine bibase crackles. Did notice a faint
end exp wheeze anteriorly after exerting himself. Monitor SR. Denies chest pain. VS as documented. + pulses. DP pulses sl weak. No edema. Abd is soft with + BS. Voiding yellow urine in the urinal. Lasix 40 mg IV given as ordered. Capped int intact
LAC -site wnl. Plan of care reviewed with pt and call fang in reach.
--- NOTE | 2025-02-10 09:10 | W.PN.CARDCBS ---
Today's Communication / Plan
-
Continue IV Lasix and attempt to get off of oxygen
Check echocardiogram
DC Nitropaste
Impression / Plan
-
Family Physician: Asa Arndt MD
Client Delivery Manager: Hubert Asher MD
Impression:
Acute diastolic CHF
Atrial fibrillation status post ablation on 02/07/2025
Hypertension
Hyperlipidemia
History of cardiomyopathy with recovered ejection fraction
Sleep apnea awaiting CPAP
History of testicular cancer
Echo, 01/28/2023:Mildly reduced LV function with EF 45-50%, mild MR
Echo, 08/10/2024: Normal LV RV function, EF 55-60%, mild MR, mild TR PASP 27 mmHg
DEO, 02/07/2025: Normal LV RV function EF 55 to 60%, trace MR, mild TR, focal pulmonic valve thickening, no left atrial appendage thrombus
Recommendations:
He remains on oxygen. He feels he is at his dry weight of 160 pounds.
Will continue IV Lasix and consider change to oral Lasix in the next 24 to 48 hours.
DC Nitropaste
Remains in sinus rhythm status post AF ablation (PFA PVI/PWI on 02/07/2025)
[id number]: 3 (heart failure, hypertension, age). Eliquis 5 mg twice daily for stroke risk reduction
Progress Note - Client Delivery Manager
Subjective
Date of Service: February 10, 2025
No complaints
Objective
Labs:
02/10/25 03:44
02/10/25 03:44
Labs
Hgb 13.8 g/dL (13.0-18.0) 02/10/25 03:44
Hct 40.3 % (39.0-52.0) 02/10/25 03:44
Plt Count 218 10^3/uL (130-400) D 02/10/25 03:44
PT 14.5 Sec (11.4-14.6) 02/09/25 02:15
INR 1.08 02/09/25 02:15
APTT 27.0 Sec (23.4-35.0) 02/09/25 02:15
Sodium 138 mmol/L (135-145) 02/10/25 03:44
Potassium 4.0 mmol/L (3.5-5.1) 02/10/25 03:44
BUN 19 mg/dl (9-20) 02/10/25 03:44
Creatinine 0.8 mg/dL (0.7-1.3) 02/10/25 03:44
Glucose 112 mg/dl (70-99) H 02/10/25 03:44
Troponins
02/09/25 02/09/25 02/09/25
02:15 09:39 12:52
Troponin I 6.140 H* Cancelled 3.880 H*
02/09/25 02/09/25 02/09/25
15:39 21:39 23:00
Troponin I Cancelled Cancelled Cancelled
02/10/25
03:44
Troponin I 2.240 H*
Vital Signs and I&O:
Vital Signs
Temp Pulse Resp BP Pulse Ox
99.4 F 84 23 144/79 94
02/09/25 15:13 02/10/25 08:27 02/10/25 06:00 02/10/25 08:27 02/10/25 06:00
Vital Signs
Temp Pulse Resp BP Pulse Ox
99.4 F 84 23 144/79 94
02/09/25 15:13 02/10/25 08:27 02/10/25 06:00 02/10/25 08:27 02/10/25 06:00
Intake & Output
02/08/25 02/09/25 02/10/25 02/11/25
06:59 06:59 06:59 06:59
Intake Total 840 / 840
Output Total 2900 / 2900
Balance -2059 /
Physical Exam
Physical Exam
General: Well developed, well nourished in NAD.
Neck: Supple, no JVD, HJR, carotids +2 B/L, no bruits bilaterally.
Heart: Non displaced PMI, RRR, no murmurs, No S3, S4, no rubs.
Lungs: Scattered rhonchi
Extremities: No clubbing, cyanosis or edema bilaterally.
Neuro: Grossly nonfocal, awake, alert and oriented x3.
--- NOTE | 2025-02-10 09:25 | PTCARENOTE ---
Diurising from Lasix. Awaiting breakfast. Assisted oob to the chair- gait steady with no c/o dizziness. Call fang in reach.
--- NOTE | 2025-02-10 10:53 | W.PN.HOSP.TC ---
Today's Communication/Plan
-
Transfer to telemetry
Continue with IV Lasix
Monitor blood pressure closely
Wean off oxygen as tolerated
Assessment / Plan
Assessment / Plan
General comfortable, on oxygen,
HEENT: Moist mucous membranes, PERRLA and Other (Pos JVD.)
Respiratory: Other (Bibasilar rales.)
Cardiac: S1/S2 and Regular Rhythm; No Murmur
GI: Soft, Non Tender, Non Distended and Normal Bowel Sounds
Musculoskeletal: No Clubbing, No Cyanosis and No Edema
Neuro: AO x 3
Psych:flat affect
A/P: Patient is a 69y M with PMH significant for hypertension, cardiomyopathy and A-Fib s/p recent ablation who presents to ED complaining of SOB.
Flash Pulmonary Edema
Acute Hypoxemic Respiratory Failure secondary to the above
- Patient presented in respiratory distress with markedly elevated BP, bilateral rales, pulm edema on imaging, etc.
- BP / dyspnea markedly improved with administration of NitroPaste.
- DC Nitropaste.
- Currently on oxygenation with nasal cannula. Can restart BiPAP if needed.
- IV Lasix continued
- Adjust antihypertensive med regimen as needed for normotension.
- CT chest negative for pulmonary embolism. There is a finding of moderate pulmonary edema. Blood pressure improving.
-Update echocardiogram
- Cardiology evaluation for additional recommendations.
Persistent Atrial Fibrillation
- s/p PVI ablation on 02/07/25.
- Continue Eliquis for stroke risk reduction.
- Monitor on tele.
- Continue metoprolol.
- Femoral puncture site care.
Elevated troponin likely secondary to recent ablation, flash pulmonary edema, hypoxic respiratory failure
- Currently without chest pain. Monitor troponin. Cardiology following.
Leukocytosis unclear etiology
-If spikes fever check UA blood culture
-Continue to trend for now. Continues to trend down
Thyroid nodule
-Outpatient follow-up
DVT Prophylaxis: On Eliquis
Code Status: Full
Anticipated Discharge: > 48 hours
Subjective/Interval History
-
Date of Service: February 10, 2025
oxygen requirement improved
states breathing has improved
Objective Data
-
Labs:
Laboratory Results
02/10/25
03:44
WBC 11.7 H
Hgb 13.8
Hct 40.3
Plt Count 218 D
Sodium 138
Potassium 4.0
Chloride 108 H
Carbon Dioxide 27
BUN 19
Creatinine 0.8
Glucose 112 H
Calcium 9.0
Vital Signs:
Vital Signs
Temp Pulse Resp BP Pulse Ox
98.3 F 85 26 171/106 92
02/10/25 08:00 02/10/25 09:25 02/10/25 09:25 02/10/25 09:25 02/10/25 09:25
I&O
02/09/25 02/10/25 02/11/25
06:59 06:59 06:59
Intake Total 840 / 840
Output Total 2900 / 2900 1000 / 1000
Balance -2059 / -2059 -1000 / -1000
--- NOTE | 2025-02-10 11:00 | PTCARENOTE ---
Overall good appetite for breakfast. Resting oob with no complaints. O2 decreased at 1100 to 1L with sats of 94% even after activity. Encouraged pt to do am care and pt stood at the sink and did oral care and CHG bath. Tolerated and stated he did
not feel short of breath. VS as documented. Continuing to diurese from Lasix. Gait slow but steady. Call fang in reach.
--- NOTE | 2025-02-10 13:10 | PTCARENOTE ---
Remains sitting oob in the chair. Tried pt on RA but sats dipped to 87-88%- currently back on 1L nc with sats of 92-93%. No complaints offered. Pts family at the bedside and updated. Call fang in reach
--- NOTE | 2025-02-10 14:14 | PTCARENOTE ---
Good appetite. Worked with PT and currently is resting back in bed. No other changes.
--- NOTE | 2025-02-10 18:00 | PTCARENOTE ---
Dozed off and on this afternoon. Bp 97-109 syst with sleeping. Awake currently and BP 137/85. Denies discomfort or shortness of breath. Assisted oob to the chair and once oob placed back on RA to see how he will do. Sats on 1L 95%- currently 93%.
Call fang in reach and awaiting dinner.
[2025-02-10] MEDS: LIPITOR 10 MG PO (19:23)
--- NOTE | 2025-02-10 22:42 | PTCARENOTE ---
Received pt sitting in chair, standby assist back to bed. AAOx3. No complaints. SR on tele, HR 60-70s. BP 140-150/80s. + pulses. Afebrile. On RA when awake but requiring 1L NC when asleep due to sats of 87%. Now 93%. R lung base with fine crackles.
Otherwise, diminished. + bowel sounds. Low chol. diet with fluid restriction maintained. Voiding in urinal. Call fang in reach.
[2025-02-11] VITALS (10 sets, daily range): BP systolic 113–156; BP diastolic 65–94; BMI 27.5
[2025-02-11 04:33] LABS: Hematocrit 38.8 % (39.0-52.0); Hemoglobin 13.2 g/dL (13.0-18.0); Mean Corp Hgb Conc. 34.0 g/dL (33.0-37.0); Mean Corpuscular Volume 89.8 fL (80.0-94.0); Nucleated Red Blood Cells % 0 % (-); Platelet Count 242 10^3/uL (130-400); Red Cell Dist. Width 13.0 % (11.5-14.5)
[2025-02-11 04:57] LABS: Blood Urea Nitrogen 22 mg/dl (9-20); Calcium 9.2 mg/dl (8.4-10.2); Carbon Dioxide 28 mmol/L (22-30); Chloride 104 mmol/L (98-107); Estimated Creatinine Clearance 75 ml/min; Glucose 118 mg/dl (70-99); Potassium 3.7 mmol/L (3.5-5.1); Sodium 137 mmol/L (135-145); eGFR > 60.00
[2025-02-11] MEDS: ELIQUIS 5 MG PO ×2 (07:46→20:11)
[2025-02-11] MEDS: LOPRESSOR 50 MG PO ×2 (07:46→20:11)
[2025-02-11] MEDS: PROTONIX 40 MG PO (07:46)
--- NOTE | 2025-02-11 08:15 | PTCARENOTE ---
Rec'd pt at 0730 awake alert and oriented resting in bed. States he did get some sleep and overall feels ok this am. Affect remains very flat but will interact and answer questions-just does not provide a lot of additional conversation. Speech is
clear. Denies dizziness or headache. CASTANEDA. Skin is pink wm and dry. R groin ablation pucture site sl ecchymotic but no swelling or drainage. Respirs are unlabored. Denies shortness of breath. Rec'd pt on 1l NC O2 with sats of 96% and at 0800
decreased to 0.5L nc with sats of 95%. BS are clear this am. No cough noted. Monitor SR. + pulses. Dp pulses are sl weak. No edema. Denies chest pain. VS as documented. Abd is soft with + BS. Denies nausea. Voided on previous shift-uses the urinal.
Capped int intact LAC site wnl. Repositions himself. Call fang in reach and pt updated on plan of care.
[2025-02-11] MEDS: LASIX 40 MG IV (09:19)
[2025-02-11] MEDS: KCL 40 MEQ PO (09:22)
[2025-02-11] MEDS: FLUSH (NSS) 1 FLUSH IV (09:22)
--- NOTE | 2025-02-11 09:30 | PTCARENOTE ---
Good appetite for breakfast. Denies nausea. Sats have been 96% on 0.5L as such O2 removed at 0900. Asssited oob to the bathroom voided in the toilet and per pt had a large soft formed brown BM. Did self AM care at the sink. No c/o dizziness or
shortness of breath. Dr. Diehl updated on K+ level of 3.7 and KCL 40 meq given at 0920 followed by Lasix 40 mg IV per orders. Currently resting in the chair with call fang in reach. O2 sats currently 91-92%.
--- NOTE | 2025-02-11 10:05 | W.PN.CARDCBS ---
Today's Communication / Plan
-
Cardiovascular stable and off oxygen
Changed to p.o. Lasix in a.m.
Recheck LV function with echo follow-up
Impression / Plan
-
Family Physician: Asa Arndt MD
[employer]: Hubert Asher MD
Impression:
Acute diastolic CHF
Atrial fibrillation status post ablation on 02/07/2025
Hypertension
Hyperlipidemia
History of cardiomyopathy with recovered ejection fraction
Sleep apnea awaiting CPAP
History of testicular cancer
Echo, 01/28/2023:Mildly reduced LV function with EF 45-50%, mild MR
Echo, 08/10/2024: Normal LV RV function, EF 55-60%, mild MR, mild TR PASP 27 mmHg
DEO, 02/07/2025: Normal LV RV function EF 55 to 60%, trace MR, mild TR, focal pulmonic valve thickening, no left atrial appendage thrombus
Recommendations:
He is off of oxygen
Weight appears to be at baseline
He has received IV Lasix today will change to oral Lasix in a.m.
Recheck echo/LV function
Remains in sinus rhythm status post AF ablation (PFA PVI/PWI on 02/07/2025)
[id number]: 3 (heart failure, hypertension, age). Eliquis 5 mg twice daily for stroke risk reduction
Discussed with primary service and nursing
Increase activity
Progress Note - Gasket Former
Subjective
Date of Service: February 11, 2025
No chest pain or shortness of breath. Off of oxygen.
Objective
Labs:
02/11/25 03:58
02/11/25 03:58
Labs
Hgb 13.2 g/dL (13.0-18.0) 02/11/25 03:58
Hct 38.8 % (39.0-52.0) L 02/11/25 03:58
Plt Count 242 10^3/uL (130-400) 02/11/25 03:58
PT 14.5 Sec (11.4-14.6) 02/09/25 02:15
INR 1.08 02/09/25 02:15
APTT 27.0 Sec (23.4-35.0) 02/09/25 02:15
Sodium 137 mmol/L (135-145) 02/11/25 03:58
Potassium 3.7 mmol/L (3.5-5.1) 02/11/25 03:58
BUN 22 mg/dl (9-20) H 02/11/25 03:58
Creatinine 0.9 mg/dL (0.7-1.3) 02/11/25 03:58
Glucose 118 mg/dl (70-99) H 02/11/25 03:58
Troponins
02/09/25 02/09/25 02/09/25
02:15 09:39 12:52
Troponin I 6.140 H* Cancelled 3.880 H*
02/09/25 02/09/25 02/09/25
15:39 21:39 23:00
Troponin I Cancelled Cancelled Cancelled
02/10/25
03:44
Troponin I 2.240 H*
Vital Signs and I&O:
Vital Signs
Temp Pulse Resp BP Pulse Ox
98 F 72 20 144/86 90
02/11/25 07:10 02/11/25 09:20 02/11/25 07:45 02/11/25 09:20 02/11/25 09:20
Vital Signs
Temp Pulse Resp BP Pulse Ox
98 F 72 20 144/86 90
02/11/25 07:10 02/11/25 09:20 02/11/25 07:45 02/11/25 09:20 02/11/25 09:20
Intake & Output
07/0402/10/25 02/11/25 02/12/25
06:59 06:59 06:59 06:59
Intake Total 840 / 840 650 / 650 300 / 300
Output Total 2900 / 2900 2350 / 2350 220 / 220
Balance -2059 / -2059 -1699 / -1699 80 / 80
Physical Exam
Physical Exam
General: Well developed, well nourished in NAD.
Neck: Supple, no JVD, HJR, carotids +2 B/L, no bruits bilaterally.
Heart: Non displaced PMI, RRR, no murmurs, No S3, S4, no rubs.
Lungs: Scattered rhonchi at the bases
Extremities: No clubbing, cyanosis or edema bilaterally.
Neuro: Grossly nonfocal, awake, alert and oriented x3.
--- NOTE | 2025-02-11 12:20 | PTCARENOTE ---
Remains sitting oob visiting with family. No complaints and no changes in assessment. VS as documented. Using IS and getting about 2500 on IS. Pts updated. Lunch ordered. Call fang in reach
--- NOTE | 2025-02-11 12:32 | W.PN.HOSP.TC ---
Today's Communication/Plan
-
Follow-up echo in the morning
IV Lasix for 24 hours
Senna spirometry
Out of bed ambulation
Monitor blood pressure
Assessment / Plan
Assessment / Plan
General on room air, comfortable
HEENT: Moist mucous membrane,
Respiratory: To auscultation
Cardiac: S1/S2 and Regular Rhythm; No Murmur
GI: Soft, Non Tender, Non Distended and Normal Bowel Sounds
Musculoskeletal: No Clubbing, No Cyanosis and No Edema
Neuro: AO x 3
Psych:flat affect
A/P: Patient is a 69y M with PMH significant for hypertension, cardiomyopathy and A-Fib s/p recent ablation who presents to ED complaining of SOB.
Flash Pulmonary Edema
Acute Hypoxemic Respiratory Failure secondary to the above
- Patient presented in respiratory distress with markedly elevated BP, bilateral rales, pulm edema on imaging, etc.
- BP / dyspnea markedly improved with administration of NitroPaste.
- DC Nitropaste.
- Currently on oxygenation with nasal cannula. Can restart BiPAP if needed.
- IV Lasix continued
- Adjust antihypertensive med regimen as needed for normotension.
- CT chest negative for pulmonary embolism. There is a finding of moderate pulmonary edema. Blood pressure improving.
-Update echocardiogram
- Cardiology evaluation for additional recommendations. Update echo
Persistent Atrial Fibrillation
- s/p PVI ablation on 02/07/25.
- Continue Eliquis for stroke risk reduction.
- Monitor on tele.
- Continue metoprolol.
- Femoral puncture site care.
Elevated troponin likely secondary to recent ablation, flash pulmonary edema, hypoxic respiratory failure
- Currently without chest pain. Monitor troponin. Cardiology following.
Leukocytosis unclear etiology
-If spikes fever check UA blood culture
- Resolved.
Thyroid nodule
-Outpatient follow-up
DVT Prophylaxis: On Eliquis
Code Status: Full
Discussed with cardiology
Anticipated Discharge: Within 24 hours
Subjective/Interval History
-
Date of Service: February 11, 2025
Off oxygen
O2 sats are 92%
Objective Data
-
Labs:
Laboratory Results
02/11/25
03:58
WBC 10.3
Hgb 13.2
Hct 38.8 L
Plt Count 242
Sodium 137
Potassium 3.7
Chloride 104
Carbon Dioxide 28
BUN 22 H
Creatinine 0.9
Glucose 118 H
Calcium 9.2
Vital Signs:
Vital Signs
Temp Pulse Resp BP Pulse Ox
98 F 70 20 122/88 92
02/11/25 11:35 02/11/25 12:20 02/11/25 12:20 02/11/25 12:16 02/11/25 12:20
I&O
02/10/25 02/11/25 02/12/25
06:59 06:59 06:59
Intake Total 840 / 840 650 / 650 300 / 300
Output Total 2900 / 2900 2350 / 2350 970 / 970
Balance -2059 / -2060 -1700 / -1700 -670 / -670
--- NOTE | 2025-02-11 14:00 | PTCARENOTE ---
Good appetite for lunch. Ambulated 1 loop around the ICU. Sats on RA are 93-95%. Gait overall is steady with no c/o dizziness. Voided. Currently resting back in bed watching TV. Call fang in reach.
--- NOTE | 2025-02-11 16:20 | PTCARENOTE ---
Watching the [employer] this afternoon. No complaints. Sats have remained 95% on RA. VS as documented. Remains resting in bed. Call fang in reach.
[2025-02-11] MEDS: LIPITOR 10 MG PO (17:54)
--- NOTE | 2025-02-11 18:19 | PTCARENOTE ---
Good appetite for dinner. No changes in assessment
--- NOTE | 2025-02-11 22:19 | PTCARENOTE ---
Received pt resting in bed, AAOx3. No complaints. SR on tele, HR 60-70s. BP 130/70. + pulses. Afebrile. On RA, spo2 95%. Lungs diminished bibasilar but CTA. + bowel sounds. Ambulated to bathroom independently and had BM. Low chol. diet with fluid
restriction maintained. Voiding in urinal. Call fang in reach.
[2025-02-12] VITALS (10 sets, daily range): BP systolic 115–159; BP diastolic 64–96; PULSE 68–77; O2SAT 92; BMI 27.8
[2025-02-12 04:41] LABS: Blood Urea Nitrogen 23 mg/dl (9-20); Calcium 8.8 mg/dl (8.4-10.2); Carbon Dioxide 27 mmol/L (22-30); Chloride 107 mmol/L (98-107); Estimated Creatinine Clearance 75 ml/min; Glucose 106 mg/dl (70-99); Magnesium 2.2 mg/dl (1.6-2.3); Potassium 4.1 mmol/L (3.5-5.1); Sodium 137 mmol/L (135-145); eGFR > 60.00
--- NOTE | 2025-02-12 07:30 | PTCARENOTE ---
Received patient A&Ox3, on RA, NSR, BP WNL, GI/ continent, denied pain throughout.
[2025-02-12] MEDS: ELIQUIS 5 MG PO (07:47)
[2025-02-12] MEDS: PROTONIX 40 MG PO (07:47)
[2025-02-12] MEDS: LASIX 40 MG PO (07:47)
[2025-02-12] MEDS: LOPRESSOR 50 MG PO (07:47)
--- NOTE | 2025-02-12 10:29 | W.PN.HOSP.TC ---
Addendum entered and electronically signed by Derian Diehl MD 02/12/25 11:50:
Nonischemic myocardial injury
Original Note:
Today's Communication/Plan
-
await ECHO results
po lasix
dc tentatively based on TTE results
Assessment / Plan
Assessment / Plan
General on room air, comfortable
HEENT: Moist mucous membrane,
Respiratory: To auscultation
Cardiac: S1/S2 and Regular Rhythm; No Murmur
GI: Soft, Non Tender, Non Distended and Normal Bowel Sounds
Musculoskeletal: No Clubbing, No Cyanosis and No Edema
Neuro: AO x 3
Psych:flat affect
A/P: Patient is a 69y M with PMH significant for hypertension, cardiomyopathy and A-Fib s/p recent ablation who presents to ED complaining of SOB.
Flash Pulmonary Edema
Acute Hypoxemic Respiratory Failure secondary to the above
Acute HFpEF
- Patient presented in respiratory distress with markedly elevated BP, bilateral rales, pulm edema on imaging, etc.
- BP / dyspnea markedly improved with administration of NitroPaste.
- DC Nitropaste.
- off oxygen
- IV Lasix discontinued. po lasix 40mg on dc per cards.
- Adjust antihypertensive med regimen as needed for normotension.
- CT chest negative for pulmonary embolism. There is a finding of moderate pulmonary edema. Blood pressure improving.
-Update echocardiogram-pending
- Cardiology evaluation for additional recommendations. Update echo
Persistent Atrial Fibrillation
- s/p PVI ablation on 02/07/25.
- Continue Eliquis for stroke risk reduction.
- Monitor on tele.
- Continue metoprolol.
- Femoral puncture site care.
Elevated troponin likely secondary to recent ablation, flash pulmonary edema, hypoxic respiratory failure
- Currently without chest pain. Monitor troponin. Cardiology following.
Leukocytosis unclear etiology
-If spikes fever check UA blood culture
- Resolved.
Thyroid nodule
-Outpatient follow-up
DVT Prophylaxis: On Eliquis
Code Status: Full
Discussed with cardiology
More than 30 minutes spent in discharge including
Final examination of the patient
Summarizing hospital stay
Instructions for continuing care to all relevant caregivers
Preparation of discharge records, prescriptions, and referral forms
Total time spent (in minutes): 52
Anticipated Discharge: Today
Subjective/Interval History
-
Date of Service: February 12, 2025
feeling better
on room air
Objective Data
-
Labs:
Laboratory Results
02/12/25
04:04
Sodium 137
Potassium 4.1
Chloride 107
Carbon Dioxide 27
BUN 23 H
Creatinine 0.9
Glucose 106 H
Calcium 8.8
Vital Signs:
Vital Signs
Temp Pulse Resp BP Pulse Ox
97.7 F 72 18 159/96 96
02/12/25 07:50 02/12/25 07:47 02/11/25 16:00 02/12/25 07:47 02/12/25 06:00
I&O
02/11/25 02/12/25 02/13/25
06:59 06:59 06:59
Intake Total 650 / 650 1290 / 1290
Output Total 2350 / 2350 1845 / 1845 850 / 850
Balance -1700 / -1700 -555 / -555 -850 / -850
--- NOTE | 2025-02-12 10:44 | W.PN.CARDCBS ---
Today's Communication / Plan
-
Stable cardiology status Lasix
Discharge to home if echo okay
Impression / Plan
-
Family Physician: Asa Arndt MD
Fire Prevention Forester: Hubert Asher MD
Impression:
Acute diastolic CHF
Atrial fibrillation status post ablation on 02/07/2025
Hypertension
Hyperlipidemia
History of cardiomyopathy with recovered ejection fraction
Sleep apnea awaiting CPAP
History of testicular cancer
Echo, 01/28/2023:Mildly reduced LV function with EF 45-50%, mild MR
Echo, 08/10/2024: Normal LV RV function, EF 55-60%, mild MR, mild TR PASP 27 mmHg
DEO, 02/07/2025: Normal LV RV function EF 55 to 60%, trace MR, mild TR, focal pulmonic valve thickening, no left atrial appendage thrombus
Recommendations:
Stable cardiology status on oral Lasix
Will check echo and if okay stable cardiology status for discharge
Remains in sinus rhythm status post AF ablation (PFA PVI/PWI on 02/07/2025)
[id number]: 3 (heart failure, hypertension, age). Eliquis 5 mg twice daily for stroke risk reduction
Discussed with primary service
Progress Note - Fire Prevention Forester
Subjective
Date of Service: February 12, 2025
No complaints
Objective
Labs:
02/11/25 03:58
02/12/25 04:04
Labs
Hgb 13.2 g/dL (13.0-18.0) 02/11/25 03:58
Hct 38.8 % (39.0-52.0) L 02/11/25 03:58
Plt Count 242 10^3/uL (130-400) 02/11/25 03:58
PT 14.5 Sec (11.4-14.6) 02/09/25 02:15
INR 1.08 02/09/25 02:15
APTT 27.0 Sec (23.4-35.0) 02/09/25 02:15
Sodium 137 mmol/L (135-145) 02/12/25 04:04
Potassium 4.1 mmol/L (3.5-5.1) 02/12/25 04:04
BUN 23 mg/dl (9-20) H 02/12/25 04:04
Creatinine 0.9 mg/dL (0.7-1.3) 02/12/25 04:04
Glucose 106 mg/dl (70-99) H 02/12/25 04:04
Troponins
02/09/25 02/09/25 02/09/25
09:39 12:52 15:39
Troponin I Cancelled 3.880 H* Cancelled
02/09/25 02/09/25 02/10/25
21:39 23:00 03:44
Troponin I Cancelled Cancelled 2.240 H*
Vital Signs and I&O:
Vital Signs
Temp Pulse Resp BP Pulse Ox
97.7 F 72 18 159/96 96
02/12/25 07:50 02/12/25 07:47 02/11/25 16:00 02/12/25 07:47 02/12/25 06:00
Vital Signs
Temp Pulse Resp BP Pulse Ox
97.7 F 72 18 159/96 96
02/12/25 07:50 02/12/25 07:47 02/11/25 16:00 02/12/25 07:47 02/12/25 06:00
Intake & Output
02/10/25 02/11/25 02/12/25 02/13/25
06:59 06:59 06:59 06:59
Intake Total 840 / 840 650 / 650 1290 / 1290
Output Total 2900 / 2900 2350 / 2350 1845 / 1845 850 / 850
Balance -2060 / -2060 -1700 / -1699 -555 / -555 -850 / -850
Physical Exam
Physical Exam
General: Well developed, well nourished in NAD.
Neck: Supple, no JVD, HJR, carotids +2 B/L, no bruits bilaterally.
Heart: Non displaced PMI, RRR, no murmurs, No S3, S4, no rubs.
Lungs: Scattered rhonchi at the bases
Extremities: No clubbing, cyanosis or edema bilaterally.
Neuro: Grossly nonfocal, awake, alert and oriented x3.
--- NOTE | 2025-02-12 10:47 | PN.CDI ---
CDI
- -
CDI:
Physician Documentation Request
Admit Date: 02/09/25 06:47
Dear Doctor Shanita,
Patient admitted for pulmonary edema.
02/12 Hospitalist PN: 'Elevated troponin likely secondary to recent ablation, flash pulmonary edema, hypoxic respiratory failure'
Please clarify the following regarding the documented troponin elevation:
Non-ischemic myocardial injury
Lab abnormality
Other
Use of terms such as suspected, likely, concern for, or probable (associated with a specific diagnosis that is being evaluated, monitored, or treated as if it exists) are acceptable and can be coded in the inpatient setting, when documented at the
time of discharge.
Thank you,
Cece Espinosa RN, BSN
CDI Specialist
Available via [employer] text
Please use your independent medical judgment in providing your response.
--- NOTE | 2025-02-12 12:07 | PTCARENOTE ---
Reassessed the patient, pt walked in the hallway with PT, now sitting in the chair for lunch, on RA, VSS, denied pain throughout.
--- NOTE | 2025-02-12 12:16 | CM ---
Initial assessment completed with patient who lives with his in a 2 story plus basement home with 5 steps to enter, B/B on 1st floor. 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 No DME and no in-home services. No
service. No HC-POA. PCP is Dr. Asa Arndt and [facility]acy is [facility] in [place]. Discharge POC: Anticipate home with no needs
--- NOTE | 2025-02-12 12:22 | W.DCSUMMARY ---
Discharge Summary
Discharge Data
Date of Admission: 02/09/25
Date of Discharge: 02/12/25
-
Pending Results: No
Hospital Course
69y M with PMH significant for hypertension, cardiomyopathy and A-Fib s/p recent ablation who presents to ED complaining of SOB. Patient was found to be in acute hypoxic respiratory failure. Patient was placed on BiPAP which seemed to
significantly help him. Patient was found to flash pulmonary edema. Patient was eval by cardiology. Patient was placed on Nitropaste. Patient was IV Lasix. CT chest was performed which is negative for pulmonary embolism. It was found patient
with pulmonary edema. Patient was weaned off BiPAP. Patient was placed on nasal cannula. Patient oxygenation status improved and he was able to be completely weaned off to room air. Patient O2 status was stable with exertion while working with
physical therapy. Patient was transition from IV Lasix to 40 mg p.o. Lasix daily. Recommend to follow-up with cardiology and PCP with blood work.
Discharge Plan
-
Patient Disposition: Home (Routine Discharge)
Discharge Diagnosis/Procedures: Acute hypoxic respiratory failure
Acute diastolic heart failure exacerbation
Condition: Fair
Diet: 2 Gram Sodium and Restrict fluids to 48 oz
Activity: As tolerated
Driving Restrictions: As prior to admission
Blood Work: BMP in 1 week via primary doctor.
Specialty Instructions: Weigh Daily- Call MD for wt gain/loss 3 lbs overnight/5 lbs in 1 week
Referrals:
Asa Arndt MD [Family Provider, Family Practice] - in less than 1 week
Maycol Infante DO [Active, Cardiology] - in two to three weeks
Prescriptions:
New
furosemide 40 mg Tablet
40 mg PO DAILY 30 Days Qty: 30 0RF
Continued
Eliquis 5 mg Tablet
5 mg PO BID
atorvastatin 10 mg Tablet
10 mg PO QPM
metoprolol tartrate 50 mg Tablet
50 mg PO BID
pantoprazole [Protonix] 40 mg tablet,delayed release (DR/EC)
40 mg PO DAILY Qty: 30 0RF
Discharge Orders:
Discharge Patient (As Directed); Ordered 02/12/25
Ordered By: Derian Diehl
Discharge Date and Time
Print Language: LATVIAN
[2025-02-12] MEDS: LIPITOR 10 MG PO (17:44)
--- NOTE | 2025-02-13 08:56 | CM ---
Patient was medically cleared for discharge on 02/12/25 with no additional skilled services. transported home. IMM completed.
== END 2025-02-12 18:20 | disposition home or self-care (01) | DRG 291 ==
LOC: ICU 06:47
PROVIDERS: ADMITTING PHYSICIAN Hospitalist; ATTENDING PHYSICIAN Hospitalist; CONSULT PHYSICIAN Internal Medicine Cardiovascular Disease; EMERGENCY PHYSICIAN Student in an Organized Health Care Education/Training Program; FAMILY PHYSICIAN Family Medicine
PROC: 5A09357 Assistance with Respiratory Ventilation, Less than 24 Consecutive Hours, Continuous Positive Airway Pressure (ICD-10-PCS; 2025-02-09)
DX: I11.0 Hypertensive heart disease with heart failure (principal); I50.33 Acute on chronic diastolic (congestive) heart failure; J96.01 Acute respiratory failure with hypoxia; I48.19 Other persistent atrial fibrillation; I42.8 Other cardiomyopathies; I5A Non-ischemic myocardial injury (non-traumatic); Z79.01 Long term (current) use of anticoagulants; G47.33 Obstructive sleep apnea (adult) (pediatric); Z87.891 Personal history of nicotine dependence; Z85.47 Personal history of malignant neoplasm of testis; D72.829 Elevated white blood cell count, unspecified; E78.5 Hyperlipidemia, unspecified; Z79.899 Other long term (current) drug therapy
CPT/HCPCS: 71045; 71275; 80048; 80053; 83735; 83880; 84443; 84484; 85025; 85027; 85610; 85730; 93005; 93308; 94660; 97116; 97162; 99291; Q9967

== ENCOUNTER → 2025-03-26 10:50 | Outpatient (REF) | payer MEDICARE, OTHER, SELFPAY | LOC: HWRAD 10:50 | PROVIDERS: ATTENDING PHYSICIAN Family Medicine | DX: R59.0 Localized enlarged lymph nodes (principal) | CPT/HCPCS: 71250 ==